=== PATIENT | female | born 1960 | race Caucasian/White ===

== ENCOUNTER 2021-11-07 12:49 | Outpatient (REF) | payer OTHER, SELFPAY ==
[2021-11-07 13:07] LABS: MANUAL DIFF FLAG NO
[2021-11-07 13:19] LABS: Basophils Percent Auto 0.5 % (0-2); Eosinophils Absolute Auto 0.1 X10*3/uL (0.0-0.4); Eosinophils Percent Auto 1.1 % (0-4); Hematocrit 39.1 % (37.0-47.0); Hemoglobin 12.7 g/dl (12.0-16.0); Imm Gran Abs Auto 0.02 X10*3/uL (0.00-0.03); Imm Gran Pct Auto 0.3 % (0.0-0.4); Lymphocytes Absolute Auto 1.9 X10*3/uL (1.2-4.9); Lymphocytes Percent Auto 28.5 % (20-40); Mean Corpuscular HGB Conc 32.5 g/dl (31.0-35.0); Mean Corpuscular Hemoglobin 28.9 pg (27.0-33.0); Mean Corpuscular Volume 88.9 fL (80.0-98.0); Mean Platelet Volume 10.4 fL (9.4-12.3); Monocytes Absolute Auto 0.5 X10*3/uL (0.1-1.2); Monocytes Percent Auto 7.8 % (2-11); Neutrophils Absolute Auto 4.1 x10*3/uL (2.0-8.3); Neutrophils Percent Auto 61.8 % (45-73); Platelet Count 304 X10*3/uL (160-400); Red Cell Distribution Width 14.1 % (11.0-16.0); White Blood Count 6.6 X10*3/uL (4.8-10.8)
[2021-11-07 13:57] LABS: Alanine Aminotransferase 13 U/L (0-31); Albumin Level 4.4 g/dL (3.5-5.0); Alkaline Phosphatase 65 U/L (39-117); Anion Gap 11 (12-20); Aspartate Amino Transferase 20 U/L (5-31); Bilirubin Total 0.6 mg/dL (0.0-1.0); Blood Urea Nitrogen 10 mg/dL (9-16); Calcium 10.2 mg/dL (8.4-10.2); Carbon Dioxide 26 mmol/L (22-29); Chloride 105 mmol/L (96-108); Cholesterol 242 mg/dL; Estimated Glomerular Filt Rate > 60; Glucose Fasting 92 mg/dL (60-99); HDL Cholesterol 74 mg/dL; LDL Cholesterol Calculated 157 mg/dl; Potassium 4.3 mmol/L (3.3-5.1); Sodium 138 mmol/L (135-145); Total Protein 7.1 g/dL (6.5-8.0); Triglycerides 57 mg/dL
[2021-11-07 14:20] LABS: Vitamin D 25-OH Total 31.4 ng/mL (>30)
== END 2021-11-07 12:50 | disposition home or self-care (01) ==
LOC: HO.LAB 12:49
PROVIDERS: PCP Internal Medicine; Visit Provider Internal Medicine
DX: Z00.00 Encounter for general adult medical examination without abnormal findings (principal); M85.80 Other specified disorders of bone density and structure, unspecified site
CPT/HCPCS: 36415; 80053; 80061; 82306; 85025

== ENCOUNTER 2022-12-04 07:26 | Outpatient (REF) | payer OTHER, SELFPAY ==
[2022-12-04 07:44] LABS: MANUAL DIFF FLAG NO
[2022-12-04 08:01] LABS: Basophils Percent Auto 0.7 % (0-2); Eosinophils Absolute Auto 0.1 X10*3/uL (0.0-0.4); Hematocrit 40.9 % (37.0-47.0); Hemoglobin 12.8 g/dl (12.0-16.0); Imm Gran Abs Auto 0.02 X10*3/uL (0.00-0.03); Imm Gran Pct Auto 0.3 % (0.0-0.4); Lymphocytes Percent Auto 33.1 % (20-40); Mean Corpuscular HGB Conc 31.3 g/dl (31.0-35.0); Mean Corpuscular Hemoglobin 27.8 pg (27.0-33.0); Mean Corpuscular Volume 88.9 fL (80.0-98.0); Mean Platelet Volume 10.2 fL (9.4-12.3); Monocytes Absolute Auto 0.6 X10*3/uL (0.1-1.2); Monocytes Percent Auto 9.5 % (2-11); Neutrophils Absolute Auto 3.3 x10*3/uL (2.0-8.3); Neutrophils Percent Auto 54.4 % (45-73); Platelet Count 317 X10*3/uL (160-400); Red Cell Distribution Width 13.4 % (11.0-16.0); White Blood Count 6.1 X10*3/uL (4.8-10.8)
[2022-12-04 08:35] LABS: Alanine Aminotransferase 20 U/L (0-31); Albumin Level 3.9 g/dL (3.5-5.0); Alkaline Phosphatase 73 U/L (39-117); Anion Gap 10 (12-20); Aspartate Amino Transferase 20 U/L (5-31); Bilirubin Total 0.5 mg/dL (0.0-1.0); Blood Urea Nitrogen 12 mg/dL (9-16); Calcium 9.4 mg/dL (8.4-10.2); Carbon Dioxide 27 mmol/L (22-29); Chloride 109 mmol/L (96-108); Cholesterol 235 mg/dL; Estimated Glomerular Filt Rate > 60; Glucose Fasting 87 mg/dL (60-99); HDL Cholesterol 68 mg/dL; LDL Cholesterol Calculated 159 mg/dl; Potassium 4.4 mmol/L (3.3-5.1); Sodium 142 mmol/L (135-145); Total Protein 6.6 g/dL (6.5-8.0); Triglycerides 44 mg/dL
== END 2022-12-04 07:27 | disposition home or self-care (01) ==
LOC: HO.LAB 07:26
PROVIDERS: PCP Internal Medicine; Visit Provider Internal Medicine
DX: Z00.00 Encounter for general adult medical examination without abnormal findings (principal); M85.80 Other specified disorders of bone density and structure, unspecified site
CPT/HCPCS: 36415; 80053; 80061; 82306; 85025

== ENCOUNTER 2023-02-06 07:37 | Day surgery (SDC) | payer OTHER, SELFPAY ==
[2023-02-06 06:10] VITALS: BMI 27.4
[2023-02-06 07:46] VITALS: BP 133/80; PULSE 75; RESP 18; TEMP 36.6; O2SAT 97
[2023-02-06 08:05] VITALS: BMI 27.4
[2023-02-06] MEDS: Lactated Ringers 1,000 ML 100 ML IVCONT (08:06)
--- NOTE | 2023-02-06 08:49 | HO.ANESPROP2 ---
[facility] Past Medical History Medical History (Updated 02/05/23 @ 13:05 by Lakshmi Schmidt RN) Elevated cholesterol Family History Family history of problems with anesthesia: No Surgical History Surgical History (Updated 02/05/23 @ 13:05 by Lakshmi Schmidt RN) H/O wisdom tooth extraction History of Problems with Anesthesia: No Social History Social History Patient Tobacco Use Status: Never used Tobacco Are you DNR?: No Advance Directives: No Advance Directives Information Provided: Yes Meds Allergies Allergy/AdvReac Type Severity Reaction Status Date / Time No Known Allergies Allergy Verified 02/05/23 13:05 Active Medications: Current Medications Lactated Ringer's (Lr) 1,000 mls @ 100 mls/hr IVCONT .Q10H NUNU Last Admin: 02/06/23 08:06 Dose: 100 mls/hr Home Medications Medication Instructions Recorded Confirmed Last Taken Type Vitamin D (with calcium) 02/05/23 02/05/23 Unknown History Exam Exam Date and Time: February 06, 2023 0849 Height,Weight and Vital Signs: Height 5 ft 2 in Weight 68.039 kg Last Vital Signs Temp 98 F 02/06/23 07:46 Pulse 75 02/06/23 07:46 Resp 18 02/06/23 07:46 BP 133/80 02/06/23 07:46 Pulse Ox 97 02/06/23 07:46 O2 Del Method Room Air 02/06/23 07:46 Airway Mallampati Class: II TM Dist: >3cm Neck ROM: Full Assessment and Plan Assessment Anesthesia Assessment: Anesthesia Plan Discussed and Chart Reviewed Final Anesthetic Review Family History of Problems with Anesthesia: No History of Problems with Anesthesia: No NPO: Yes ASA Class: I Final Preanesthetic Review: No Changes in Pt Med Stat, Meds/Allgs Chart Reviewed, Consent Obtained/Reviewed and Anes Risks/Benef Reviewed Patient Risk: Low Procedure Risk: Low Anesthetic Plan Anesthetic Plan: MAC: Disposition: Standard PACU
--- NOTE | 2023-02-06 09:09 | MHC.SHP ---
Pre-Procedural Eval Section A Date of Service: 02/06/23 The patient is an INPATIENT: No Changes since office visit: No Cold of Flu in the past 2 weeks, No New Medical Problems, No Changes in Medication and No Patient answered all questions The History & Physical has been completed within 30 days and I have reviewed it.: Yes Section B Chief Complaint: Other fecal abnormalities Allergies: Allergies Allergy/AdvReac Type Severity Reaction Status Date / Time No Known Allergies Allergy Verified 02/05/23 13:05 Plan I have reviewed the history and physical and performed a pertinent physical examination on my patient. No changes have occurred unless specified. Time Spent With Patient Time: Total time managing care of this patient today ____ minutes.
--- NOTE | 2023-02-06 09:35 | P.BOP_ITS ---
Brief Operative Note Date of Service: 02/06/23 Pre-op diagnosis: abnormal findings in stool Post-op diagnosis: same Surgeon: Jaylen Campbell Was an Senior Wind Turbine Technician used for this Procedure?: No Estimated blood loss (mL): 0
[2023-02-06 09:36] VITALS: BP 87/47; PULSE 67; RESP 16; TEMP 36.2; O2SAT 97
--- NOTE | 2023-02-06 09:46 | OP_ITS ---
DATE OF SERVICE: 02/06/2023 SURGEON: Jaylen Campbell MD INDICATIONS: Abnormal findings in stool. PREOPERATIVE DIAGNOSIS: POSTOPERATIVE DIAGNOSIS: PROCEDURE PERFORMED: Colonoscopy to the terminal ileum. ESTIMATED BLOOD LOSS: COMPLICATIONS: ANESTHESIA: Monitored anesthesia care. ASSISTANTS: SPECIMENS: DESCRIPTION OF PROCEDURE: A history and physical was performed. The risks and benefits of the procedure were explained to the patient. Informed consent was obtained. The patient placed in the left lateral decubitus position. A digital rectal exam was performed and was found to be normal. The Olympus pediatric video colonoscope was introduced into the rectum and advanced to the cecum without difficulty. The cecum was identified by transillumination, palpation, and identification of ileocecal valve examination was performed. The scope was removed. She tolerated the procedure well and was taken to the recovery area in stable condition. FINDINGS: The terminal ileum was examined and appeared normal. The visualized colonic mucosa was normal. The quality of the prep was good. No polyps were identified. Retroflexed examination was normal. IMPRESSION: Normal colonoscopy. RECOMMENDATION: 1. Follow up as needed. 2. Repeat colonoscopy is recommended in 10 years for average risk individuals. MD SARKIS Sanchez/MODL / [id number]
[2023-02-06 09:51] VITALS: BP 106/68; PULSE 71; RESP 18; TEMP 36.1; O2SAT 99
== END 2023-02-06 10:26 | disposition home or self-care (01) ==
PROVIDERS: PCP Internal Medicine; Visit Provider Internal Medicine Gastroenterology
PROC: 0DJD8ZZ Inspection of Lower Intestinal Tract, Via Natural or Artificial Opening Endoscopic (ICD-10-PCS; CPT 45378; principal; 2023-02-06 08:50)
DX: R19.5 Other fecal abnormalities (principal)
CPT/HCPCS: 45378

== ENCOUNTER 2024-12-03 11:08 | Outpatient (AMB) | payer OTHER, SELFPAY ==
--- NOTE | 2024-12-03 11:27 | MHC.PC.OV ---
Vital Signs 12/03/24 11:56 Height 5 ft 2 in Weight 71.214 kg BMI 28.7 BP 110/78 Pulse 56 Pulse Source Pulse Oximeter Temp 97.9 F Temp Source Temporal Artery Scan Pulse Oximetry (%) 98 Oxygen Delivery Method Room Air Intake Visit Reasons: Routine Tmr Teacher Required: No Accompanied by: Self / Same As Patient Allergies No Known Allergies Allergy (Verified 12/03/24 11:53) Tobacco use date assessed: 12/03/24 Fall risk assessment: No Falls in past year Last assessed Fall Risk: 12/03/24 Dental Screening Dental Screen Date: 12/03/24 Did you have a dental visit in the last 12 months?: Yes Did you have a dental problem in the last 6 months where you did not have access to dental care?: No Was dental information given to patient?: Patient has dentist HPI HPI Comments History of Present Illness Details 64-year-old female with history of osteopenia, vitamin-D deficiency, and familial hypercholesterolemia presents to the office today for routine follow-up. She has not been seen in the office in several years. She does state that over the last few years, she has gained about 20 lb which she has not happy about. She states that she has moved in with her boyfriend who does the majority of the cooking and is not always healthy in the food she consumes. She also states that she now has a more sedentary job. She has joined the [employer] and has been walking daily and doing light weights. She is unsure when her last DEXA scan was. No longer taking calcium or vitamin-D. Mammogram, Pap smear, and colonoscopies all up-to-date. [facility] Medical History Elevated cholesterol Surgical History History of colonoscopy (~02/06/23) H/O wisdom tooth extraction Family History (Updated 12/03/24 @ 11:56 by TAYLOR Barnes) Mother Diabetes Father No problems noted. Social History (Updated 12/03/24 @ 11:28 by TAYLOR Barnes) Housing: House Alcohol intake: never Patient Tobacco Use Status: Never used Tobacco service: No Current occupational status: employed Cognitive needs: No Hearing needs: No Vision needs: Yes (Rx glasses) Questionnaire PHQ-9 Over the last 2 weeks, how often have you been bothered by any of the following problems? 1. Little interest or pleasure in doing things: not at all 2. Feeling down, depressed, or hopeless: not at all 3. Trouble falling or staying asleep, or sleeping too much: not at all 4. Feeling tired or having little energy: not at all 5. Poor appetite or overeating: not at all 6. Feeling bad about yourself - or that you are a failure or have let yourself or your family down: not at all 7. Trouble concentrating on things, such as reading the newspaper or watching television: not at all 8. Moving or speaking so slowly that other people could have noticed. Or the opposite - being so fidgety or restless that you have been moving around a lot more than usual: not at all 9. Thoughts that you would be better off or of hurting yourself in some way: not at all Total score: 0 Source: Developed by Drs. Ceasar Bass, Claudia Tejada, Mychal Valentin and colleagues, with an educational gerardo from [email or web address]. Thrive Questionnaire Date Thrive assessed: 12/03/24 I am a: Patient What is your living situation today?: I have a steady place to live Within the past 12 months, did the food you bought not last and you didn't have the money to get more?: Never true Within the past 12 months, did you worry whether your food would run out before you got money to buy more?: Never true Do you have trouble paying for medicines?: No Do you have trouble getting transportation to medical appointments?: No Do you have trouble paying your heating and electricity bill?: No Do you have trouble taking care of your child, family member or friend?: No Do you have trouble with day-to-day activities such as bathing, preparing meals, shopping, managing finances, etc.?: No Are you currently unemployed and looking for a job?: No Are you interested in more education?: No Please select the resources that you would like help with: None THRIVE Score: 0 AUDIT C Alcohol Use Questionnaire (AUDIT-C) 1. How often do you have a drink containing alcohol?: Never Total Score: 0 LACIE-7 AMB Questionnaire LACIE-7 Date LACIE - 7 assessed: 12/03/24 Feeling nervous, anxious, or on edge: 0 = Not at all Not being able to stop or control worryin = Not at all Worrying too much about different things: 0 = Not at all Trouble relaxin = Not at all Being so restless that it is hard to sit still: 0 = Not at all Becoming easily annoyed or irritable: 0 = Not at all Feeling afraid as if something awful might happen: 0 = Not at all Total LACIE-7 score (0-4 normal; 5-9 mild; 10-14 moderate; 15-21 severe): 0 Source: Developed by Drs. Ceasar Bass, Claudia Tejada, Mychal Valentin and colleagues, with an educational gerardo from [email or web address]. Review of Systems Const All systems reviewed & are unremarkable except as noted in HPI and below Physical exam (Primary Care) Vital Signs: Last Vital Signs Temp 97.9 F 12/03/24 11:56 Pulse 56 12/03/24 11:56 BP 110/78 12/03/24 11:56 Pulse Ox 98 12/03/24 11:56 Oxygen Delivery Method Room Air 12/03/24 11:56 BMI result Body Mass Index 28.7 Tobacco/Smoking Status: Tobacco use Status Tobacco use date assessed 12/03/24 12/03/24 11:30 Patient Tobacco Use Status Never used Tobacco 12/03/24 11:30 PHQ-9: PHQ-9 Score PHQ-9: Total score 0 12/03/24 12:02 Thrive Assessment: Date of Thrive Assessment Date Thrive assessed 12/03/24 12/03/24 11:30 Const Other: Constitutional - Awake and Alert, No apparent distress Eyes - PERRL Cardiovascular - S1S2, RRR, No edema Respiratory - Normal lung expansion, Normal respiratory effort, No respiratory distress, CTA bilaterally Extremities - no calf tenderness bilaterally, no swelling Skin - Warm/Dry Neurological - Alert & oriented x3, CN II-XII in tact Coding Level of Care Code New Pt Level 4 (92407) Complex EM visit Add On G2211 Diagnoses Familial hypercholesteremia E78.01 Vitamin D deficiency E55.9 Osteopenia M85.80 Assessment & Plan Assessment & Plan (1) Familial hypercholesteremia: Code(s): E78.01 - Familial hypercholesterolemia Category: Medical Plan: Lipid panel and lipoprotein A ordered to assess cholesterol levels. Recommendation for statin therapy pending results and ASCVD risk analysis. Lifestyle modifications discussed. (2) Vitamin D deficiency: Code(s): E55.9 - Vitamin D deficiency, unspecified Category: Medical Plan: Vitamin D level ordered. Given known history of osteopenia, vitamin d and calcium supplementation recommended, dosages to be determined pending lab results. (3) Osteopenia: Code(s): M85.80 - Other specified disorders of bone density and structure, unspecified site Category: Medical Plan: As above. DEXA scan ordered. Discussed the importance of weight bearing exercise to prevent progression to osteoporosis Plan Follow up for physical exam. Screening lab results and plan to be discussed once available. Orders: Orders TSH reflex Free T4 Today M85.80 - Other specified disorders of bone density and structure, unspecified site XR DEXA axial skeleton Today M85.80 - Other specified disorders of bone density and structure, unspecified site, Z13.1 - Encounter for screening for diabetes mellitus, Z13.220 - Encounter for screening for lipoid disorders Basic Metabolic Panel Today M85.80 - Other specified disorders of bone density and structure, unspecified site Complete Blood Count Auto Diff Today M85.80 - Other specified disorders of bone density and structure, unspecified site Hemoglobin A1c Today M85.80 - Other specified disorders of bone density and structure, unspecified site Lipid Panel Today M85.80 - Other specified disorders of bone density and structure, unspecified site Vitamin D 25-OH Total Today E55.9 - Vitamin D deficiency, unspecified Lipoprotein A Today E78.01 - Familial hypercholesterolemia
[2024-12-03 11:56] VITALS: BP 110/78; PULSE 56; TEMP 36.6; O2SAT 98; BMI 28.7
--- OUTSIDE RECORDS SUMMARY | 2024-12-03 12:36 | XMS_ITS | Patient Health Record ---
Author Organization [facility] Address [address] [place] [address] Care Team Providers Care Counter Tacker Name Role Phone Jesus Lewis MD Primary Care Provider Jaylen Colorado Jr Unavailable [phone] Allergies No Known Allergies Reason For Referral No Information Medications Medication SIG (Take, Route, Frequency, Duration) Notes Start Date End Date Status MiraLax (colon prep) 17 GM/SCOOP mixed with Gatorade or Crystal Light Orally begin at 5:00 p.m. the day before the procedure for 1 day 01/03/2023 Active Vitamin D 50 MCG (1999) 1 tablet Oral ly Once a day for 30 day(s) Active Immunizations Vaccine Route Administration Date Status Comme nts Influenza Unknown 01/03/2023 Refused Social History Tobacco Use: Social History Observation Description Date Details (start date - stop date) Never Smoker NA - NA Tobacco Use/Smoking Question Answer Notes Patient is a nonsmoker Alcohol Screen Question Answer Notes Did you have a drink containing alcohol in the p ast year? No Points 0 Interpretation Negative Problems Problem Type SNOMED Code ICD Code Onset Dates Problem Status W/U Status Risk Notes Problem [id number] Abnormal findings in stool (R19.5) Active confirmed Plan Of Treatment Future Test Test Name Order Date COLONOSCOPY 01/03/2023 Insurance Providers Payer Name Payer Address Payer Phone Subscriber Number Group Number Insured Name Patient Relationship to Insured Coverage Start Date Coverage End Date [employer] [address] [place] [address] [id number] AMIE TRAN Self - patient is the insured Medical (General) History Medical History History ICD Code Elevated cholesterol Surgical History Surgery Date(Month/Year) [place] teeth extraction
== END 2024-12-03 13:11 | disposition home or self-care (01) ==
LOC: HO.HMCHD 11:09
PROVIDERS: PCP Internal Medicine; Visit Provider Physician Assistant
DX: E78.01 Familial hypercholesterolemia (principal); E55.9 Vitamin D deficiency, unspecified; M85.80 Other specified disorders of bone density and structure, unspecified site

== ENCOUNTER → 2024-12-03 11:08 | Outpatient (BNVA) | payer OTHER, SELFPAY | PROVIDERS: PCP Internal Medicine; Visit Provider Physician Assistant ==

== ENCOUNTER 2024-12-08 08:31 | Outpatient (REF) | payer OTHER, SELFPAY ==
--- OUTSIDE RECORDS SUMMARY | 2024-12-08 08:34 | XMS_ITS | Patient Health Record ---
Author Organization [facility] Address [address] [place] [address] Care Team Providers Care Heat Seal Operator Name Role Phone Jessu Lewis MD Primary Care Provider Jaylen Colorado Jr Unavailable [phone] Allergies No Known Allergies Reason For Referral [...] Problem Status W/U Status Risk Notes Problem [id number] Abnormal findings in stool (R19.5) Active confirmed Plan Of Treatment Future Test Test Name Order Date COLONOSCOPY 01/03/2023 Insurance Providers Payer Name Payer Address Payer Phone Subscriber Number Group Number Insured Name Patient Relationship to Insured Coverage Start Date Coverage End Date [employer] [address] [place] [address] [id number] AMIE TRAN Self - patient is the insured Medical (General) History Medical History History ICD Code Elevated cholesterol Surgical History Surgery Date(Month/Year) [place] teeth extraction
[2024-12-08 11:19] LABS: MANUAL DIFF FLAG NO
[2024-12-08 11:24] LABS: Basophils Absolute Auto 0.1 X10*3/uL (0.0-0.2); Basophils Percent Auto 1.1 % (0-2); Eosinophils Absolute Auto 0.1 X10*3/uL (0.0-0.4); Eosinophils Percent Auto 1.8 % (0-4); Hematocrit 40.1 % (37.0-47.0); Hemoglobin 12.9 g/dl (12.0-16.0); Imm Gran Abs Auto 0.02 X10*3/uL (0.00-0.03); Imm Gran Pct Auto 0.4 % (0.0-0.4); Lymphocytes Absolute Auto 1.7 X10*3/uL (1.2-4.9); Lymphocytes Percent Auto 31.8 % (20-40); Mean Corpuscular HGB Conc 32.2 g/dl (31.0-35.0); Mean Corpuscular Hemoglobin 28.7 pg (27.0-33.0); Mean Corpuscular Volume 89.3 fL (80.0-98.0); Mean Platelet Volume 11.6 fL (9.4-12.3); Monocytes Absolute Auto 0.5 X10*3/uL (0.1-1.2); Monocytes Percent Auto 8.5 % (2-11); Neutrophils Absolute Auto 3.1 x10*3/uL (2.0-8.3); Neutrophils Percent Auto 56.4 % (45-73); Platelet Count 276 X10*3/uL (160-400); Red Blood Count 4.49 X10*6/uL (4.20-5.50); Red Cell Distribution Width 13.9 % (11.0-16.0); White Blood Count 5.4 X10*3/uL (4.8-10.8)
[2024-12-08 11:48] LABS: Estimated Average Glucose 120 mg/dL; Hemoglobin A1C 147.2738 umol/L; Hemoglobin A1c % 5.8 % (<6.0); Total Hemoglobin (HGBA1C) 3699.7555 umol/L
[2024-12-08 12:10] LABS: Anion Gap 12 (12-20); Blood Urea Nitrogen 18 mg/dL (9-16); Calcium 9.3 mg/dL (8.4-10.2); Carbon Dioxide 24 mmol/L (22-29); Chloride 109 mmol/L (96-108); Cholesterol 225 mg/dL (<200); Estimated Glomerular Filt Rate > 60; Glucose Random 84 mg/dL (60-115); HDL Cholesterol 71 mg/dL (>40); LDL Cholesterol Calculated 140 mg/dL (<100); Potassium 4.1 mmol/L (3.3-5.1); Sodium 141 mmol/L (135-145); Triglycerides 73 mg/dL (<150)
[2024-12-08 12:18] LABS: TSH reflex Free T4 0.97 uIU/mL (0.32-4.0); Vitamin D 25-OH Total 34.9 ng/mL (>30)
[2024-12-11 08:03] LABS: Lipoprotein A 191 nmol/L (<75)
== END 2024-12-08 08:32 | disposition home or self-care (01) ==
LOC: HO.WFDLDS 08:31
PROVIDERS: Visit Provider Physician Assistant
DX: M85.80 Other specified disorders of bone density and structure, unspecified site (principal); E55.9 Vitamin D deficiency, unspecified; E78.01 Familial hypercholesterolemia; Z13.1 Encounter for screening for diabetes mellitus
CPT/HCPCS: 36415; 80048; 80061; 82306; 83036; 83695; 84443; 85025

== ENCOUNTER 2025-02-10 14:06 | Outpatient (REF) | payer OTHER, SELFPAY ==
--- NOTE | ~2025-02-10 | MM_ITS ---
EXAMINATION: DXA BONE DENSITY AXIAL HISTORY: Osteopenia TECHNIQUE: [employer] Dual energy absorptiometry (DEXA) of the lumbar spine, total left hip, and femoral neck was performed. COMPARISON: Comparison is made with the prior examination dated 09/30/2013. FINDINGS: The bone mineral density of the lumbar spine is 0.969 g/cm2, corresponding to a T-score of -1.8, and a Z-score of -0.4. This is indicative of osteopenia. This represents a BMD change of -2.6% compared to the prior exam. This is not statistically significant. The bone mineral density of the left total hip is 0.751 g/cm2, corresponding to a T-score of -2.0, and a Z-score of -1.0. This is indicative of osteopenia. This represents a BMD change of 3.7% compared to the prior exam. This is statistically significant. The bone mineral density of the left femoral neck is 0.700 g/cm2, corresponding to a T-score of -2.4, and a Z-score of -1.1. This is indicative of osteopenia. This represents a BMD change of -5.4% compared to the prior exam. FRACTURE RISK: The FRAX index suggests a ten year probability of major osteoporotic fracture of 12.5%, and of hip fracture 2.4%. MM/XR DEXA axial skeleton IMPRESSION: Based on bone mineral density, and according to World Health Organization (WHO) criteria, the diagnosis is consistent with osteopenia. Statistically, 68% of repeat scans fall within 1 SD (+/- 0.010 g/cm2 for AP spine L1-L4) and 1 SD (+/- 0.012 g/cm2 for femur total) FRAX is a trademark of the [employer]'s [place] [employer] Metabolic Bone Disease, a World Health Organization (WHO) Collaborating Center. Electronically signed by: Ceasar Cotton MD 02/10/2025 02:48 PM EDT
--- OUTSIDE RECORDS SUMMARY | 2025-02-10 15:24 | XMS_ITS | Patient Health Record ---
Author Organization [facility] Address [address] [place] [address] Care Team Providers Care Cosmetic Sales Name Role Phone Debbie (RETIRED) Jesus LOJA Primary Care Provide case Campbell Jr, Jaylen Unavailable Allergies No Known Allergies Reason For Referral [...] Problem Status W/U Status Risk Notes Problem [id number] Abnormal findings in stool (R19.5) Active confirmed Plan Of Treatment Future Test Test Name Order Date COLONOSCOPY 01/03/2023 Insurance Providers Payer Name Payer Address Payer Phone Subscriber Number Group Number Insured Name Patient Relationship to Insured Coverage Start Date Coverage End Date [employer] [address] [place] [address] [id number] AMIE TRAN Self - patient is the insured Medical (General) History Medical History History ICD Code Elevated cholesterol Surgical History Surgery Date(Month/Year) [place] teeth extraction
== END 2025-02-10 14:07 | disposition home or self-care (01) ==
LOC: HO.MAMMO 14:06
PROVIDERS: PCP Physician Assistant; Visit Provider Physician Assistant
DX: Z13.820 Encounter for screening for osteoporosis (principal); Z78.0 Asymptomatic menopausal state; M85.89 Other specified disorders of bone density and structure, multiple sites
CPT/HCPCS: 77080

== ENCOUNTER → 2025-02-10 14:30 | Outpatient (BNV) | payer OTHER, SELFPAY | PROVIDERS: PCP Physician Assistant; Visit Provider Radiology Diagnostic Radiology | DX: E28.39 Other primary ovarian failure (principal) | CPT/HCPCS: 77080 ==